=== PATIENT | female | born 1945 | race American Indian/Alaskan Native ===

== ENCOUNTER 2019-12-25 10:37 | Outpatient (CLI) | payer MEDICARE ==
[2019-12-25 11:38] LABS: Blood Urea Nitrogen 10 mg/dL (7-17)
--- NOTE | 2019-12-27 12:04 | Cat Scan Report ---
CT ABDOMEN AND PELVIS WITH CONTRAST INDICATION / CLINICAL INFORMATION: UNSPECIFIED OPEN WOUND. TECHNIQUE: Axial CT images were obtained through the abdomen and pelvis after 100 mL Omnipaque [address] scans at this location are performed using CT dose reduction for ALARA by means of automated exposure control. COMPARISON: None FINDINGS: LOWER CHEST: Unremarkable LIVER: Unremarkable GALLBLADDER/BILIARY TREE: Unremarkable PANCREAS: Unremarkable SPLEEN: Unremarkable ADRENALS: Unremarkable KIDNEYS / URETER: Left renal cyst. URINARY BLADDER: Unremarkable REPRODUCTIVE ORGANS: Lobulated appearance of the right aspect of the uterine fundus likely reflects u terine fibroid. This measures up to 3.6 cm (series 2 at 148). Additional smaller partially calcified uterine fibroid arises from the uterine fundus. Otherwise no suspicious adnexal mass identified. STOMACH / SMALL BOWEL: Stomach and small bowel are normal in caliber. No evidence of bowel inflammati on. COLON: Colonic diverticula without CT evidence of diverticulitis. No CT evidence of appendicitis. LYMPH NODES: No significant adenopathy. VASCULATURE: No significant abnormality. OTHER: There is diastases recti. No free fluid or free air. Soft tissues are unremarkable. No organiz ed fluid collection is identified. SKELETAL SYSTEM: No acute osseous findings. IMPRESSION: 1. No acute process of the abdomen or pelvis. 2. Fibroid uterus. Other chronic, incidental findings, as above. Signer Name: Jordan Figueroa MD Signed: 12/25/2019 1:23 PM Workstation Name: [id number]
== END 2019-12-25 10:38 | disposition home or self-care (01) ==
LOC: CT 10:37
PROVIDERS: ATTEND Surgery
DX: D25.9 Leiomyoma of uterus, unspecified (principal); N28.1 Cyst of kidney, acquired; K57.30 Diverticulosis of large intestine without perforation or abscess without bleeding; S31.109A Unspecified open wound of abdominal wall, unspecified quadrant without penetration into peritoneal cavity, initial encounter
CPT/HCPCS: 36415; 74177; 82565; 84520; Q9967